=== PATIENT | female | born 1960 | race Caucasian/White ===

== ENCOUNTER 2021-12-09 12:06 | Inpatient (IN) ==
[2021-12-09] MEDS ORDERED: *HR* LORazepam 0.5 MG TABLET PO PRN (16:17)
[2021-12-09] MEDS: Gabapentin 300 MG CAPSULE PO SCH (21:45)
[2021-12-09] MEDS: Simethicone 80 MG TAB.CHEW PO SCH ×2 (21:46)
[2021-12-09] MEDS: traZODone 50 MG TABLET PO SCH (21:46)
[2021-12-09] MEDS: Apixaban 5 MG TABLET PO SCH (21:47)
[2021-12-09] MEDS: *HR* OxyCODONE/APAP 5/325 TABLET PO PRN (21:47)
[2021-12-09] MEDS: carvediloL 6.25 MG TABLET PO SCH (21:49)
[2021-12-10 04:54] LABS: Basophils # 0.1 K/mcL (0.0-0.2); Basophils % 2.2 %; Eosinophils # 0.2 K/mcL (0.0-0.6); Eosinophils % 6.2 %; Hematocrit 30.1 % (35.3-44.9); Hemoglobin 9.3 g/dL (11.5-15.4); Immature Granulocytes % 0.3 % (0-4); Lymphocytes % 26.3 %; Mean Corpuscular HGB Conc 30.9 g/dL (31.6-35.5); Mean Corpuscular Hemoglobin 28.6 pg (28.0-33.3); Mean Corpuscular Volume 92.6 fL (83.0-100.0); Monocytes # 0.6 K/mcL (0.0-1.3); Monocytes % 19.2 %; Neutrophils # 1.5 K/mcL (1.6-8.9); Platelet Count 233 K/mcL (140-400); Red Blood Count 3.25 M/mcL (3.82-4.97); Red Cell Distribution Width 16.5 % (11.5-14.5); Segmented Neutrophils % 45.8 %; White Blood Count 3.2 K/mcL (4.3-11.1)
[2021-12-10 05:01] LABS: Lymphocytes # 0.8 K/mcL (0.6-4.6)
[2021-12-10 05:02] LABS: Platelet Estimate Normal (Normal)
[2021-12-10 05:06] LABS: BUN/Creatinine Ratio 15 (6-26); Blood Urea Nitrogen 10 mg/dL (8-23); Calcium 8.2 mg/dL (8.6-10.3); Carbon Dioxide 25 mEq/L (23-29); Chloride 109 mEq/L (98-107); Glucose 89 mg/dL (70-105); Osmolality,Calculated 285 (280-300); Potassium 4.1 mEq/L (3.5-5.1); Sodium 138 mEq/L (136-145); eGFR For African Americans > 60 (> 60); eGFR For Non-African Americans > 60 (> 60)
[2021-12-10] MEDS: Simethicone 80 MG TAB.CHEW PO SCH ×4 (06:08→21:11)
[2021-12-10] MEDS: carvediloL 6.25 MG TABLET PO SCH ×2 (07:46→16:05)
[2021-12-10] MEDS: DESVENLAFAXINE SUCCINATE PO SCH (07:47)
[2021-12-10] MEDS: Brexpiprazole [Rexulti] 1 MG Tablet PO SCH (07:47)
[2021-12-10] MEDS ORDERED: Fluticasone Propionate Nasal 50 MCG/SPRAY BOTTLE NS PRN (08:00)
[2021-12-10] MEDS: Lactobacillus 1 EACH CAP.SPRINK PO SCH (08:35)
[2021-12-10] MEDS: Aspirin Enteric Coated 81 MG Tablet PO SCH (08:35)
[2021-12-10] MEDS: Multivit/Ca/Min/Fe/FA 1 TAB TABLET PO SCH (08:35)
[2021-12-10] MEDS: *HR* OxyCODONE/APAP 5/325 TABLET PO PRN ×2 (08:35→14:23)
[2021-12-10] MEDS: Cholecalciferol (D-3) 1,000 UNIT (25MCG) TABLET PO SCH (08:35)
[2021-12-10] MEDS: Apixaban 5 MG TABLET PO SCH ×2 (08:35→21:11)
[2021-12-10] MEDS: Gabapentin 300 MG CAPSULE PO SCH ×3 (08:35→21:11)
[2021-12-10] MEDS: Folic Acid 1 MG TABLET PO SCH (08:35)
[2021-12-10] MEDS ORDERED: Hydrocortisone Rectal 2.5% CRM 28 GM TUBE RC PRN (09:00)
[2021-12-10] MEDS: traZODone 50 MG TABLET PO SCH (21:12)
[2021-12-11 04:55] LABS: Hematocrit 28.7 % (35.3-44.9); Mean Corpuscular HGB Conc 31.4 g/dL (31.6-35.5); Mean Corpuscular Hemoglobin 28.1 pg (28.0-33.3); Mean Corpuscular Volume 89.7 fL (83.0-100.0); Platelet Count 209 K/mcL (140-400); Red Cell Distribution Width 16.5 % (11.5-14.5); White Blood Count 2.9 K/mcL (4.3-11.1)
[2021-12-11] MEDS: Simethicone 80 MG TAB.CHEW PO SCH ×4 (05:34→19:51)
[2021-12-11] MEDS: Folic Acid 1 MG TABLET PO SCH (09:54)
[2021-12-11] MEDS: Aspirin Enteric Coated 81 MG Tablet PO SCH (09:54)
[2021-12-11] MEDS: Cholecalciferol (D-3) 1,000 UNIT (25MCG) TABLET PO SCH (09:54)
[2021-12-11] MEDS: Multivit/Ca/Min/Fe/FA 1 TAB TABLET PO SCH (09:54)
[2021-12-11] MEDS: Apixaban 5 MG TABLET PO SCH ×2 (09:54→19:51)
[2021-12-11] MEDS: Gabapentin 300 MG CAPSULE PO SCH ×3 (09:54→19:51)
[2021-12-11] MEDS: Lactobacillus 1 EACH CAP.SPRINK PO SCH (09:54)
[2021-12-11] MEDS: carvediloL 6.25 MG TABLET PO SCH ×3 (09:55→18:16)
[2021-12-11] MEDS: Brexpiprazole [Rexulti] 1 MG Tablet PO SCH (10:00)
[2021-12-11] MEDS: DESVENLAFAXINE SUCCINATE PO SCH (10:00)
[2021-12-11] MEDS: *HR* OxyCODONE/APAP 5/325 TABLET PO PRN (10:05)
[2021-12-11] MEDS: Ondansetron ODT 4 MG TAB.RAPDIS SL PRN (10:55)
[2021-12-11] MEDS: 0.9 % Sodium Chloride 1,000 ML IVC SCH (17:08)
[2021-12-11] MEDS ORDERED: diazePAM 5 MG TABLET PO PRN (18:49)
[2021-12-11] MEDS ORDERED: Acetaminophen 325 MG TABLET PO PRN ×2 (18:51→18:53)
[2021-12-11] MEDS: *HR* Methotrexate 2.5 MG TABLET PO SCH (19:23)
[2021-12-11] MEDS: traZODone 50 MG TABLET PO SCH (19:51)
[2021-12-12] MEDS: 0.9 % Sodium Chloride 1,000 ML IVC SCH (02:06)
[2021-12-12 04:31] LABS: Hemoglobin 8.7 g/dL (11.5-15.4); Mean Corpuscular HGB Conc 31.1 g/dL (31.6-35.5); Mean Corpuscular Hemoglobin 28.2 pg (28.0-33.3); Mean Corpuscular Volume 90.9 fL (83.0-100.0); Mean Platelet Volume 9.4 fL (9.4-12.4); Platelet Count 187 K/mcL (140-400); Red Blood Count 3.08 M/mcL (3.82-4.97); Red Cell Distribution Width 16.4 % (11.5-14.5); White Blood Count 2.4 K/mcL (4.3-11.1)
[2021-12-12 04:47] LABS: Alanine Aminotransferase 6 Units/L (7-52); Alkaline Phosphatase 59 Units/L (34-104); Aspartate Amino Transferase 12 Units/L (13-39); BUN/Creatinine Ratio 16 (6-26); Bilirubin,Total 0.2 mg/dL (0.3-1.0); Blood Urea Nitrogen 9 mg/dL (8-23); Calcium 7.4 mg/dL (8.6-10.3); Carbon Dioxide 25 mEq/L (23-29); Chloride 113 mEq/L (98-107); Glucose 89 mg/dL (70-105); Magnesium 1.5 mg/dL (1.6-2.6); Osmolality,Calculated 288 (280-300); Sodium 140 mEq/L (136-145); eGFR For African Americans > 60 (> 60); eGFR For Non-African Americans > 60 (> 60)
[2021-12-12] MEDS: Simethicone 80 MG TAB.CHEW PO SCH ×4 (05:46→20:31)
[2021-12-12] MEDS ORDERED: 0.9 % Sodium Chloride 500 ML IVC ONE (07:50)
[2021-12-12] MEDS: Aspirin Enteric Coated 81 MG Tablet PO SCH (08:14)
[2021-12-12] MEDS: Folic Acid 1 MG TABLET PO SCH (08:14)
[2021-12-12] MEDS: Cholecalciferol (D-3) 1,000 UNIT (25MCG) TABLET PO SCH (08:14)
[2021-12-12] MEDS: Multivit/Ca/Min/Fe/FA 1 TAB TABLET PO SCH (08:14)
[2021-12-12] MEDS: Lactobacillus 1 EACH CAP.SPRINK PO SCH (08:14)
[2021-12-12] MEDS: Apixaban 5 MG TABLET PO SCH ×2 (08:14→20:30)
[2021-12-12] MEDS: Brexpiprazole [Rexulti] 1 MG Tablet PO SCH (08:15)
[2021-12-12] MEDS: DESVENLAFAXINE SUCCINATE PO SCH (08:15)
[2021-12-12] MEDS ORDERED: diazePAM 5 MG TABLET PO SCH (09:00)
[2021-12-12] MEDS: *HR* OxyCODONE/APAP 5/325 TABLET PO PRN ×2 (10:36→17:31)
[2021-12-12] MEDS ORDERED: *HR* FentaNYL PATCH 12 MCG PATCH TD SCH (14:30)
[2021-12-12] MEDS ORDERED: diazePAM 5 MG TABLET PO PRN (14:30)
[2021-12-12] MEDS: Fluconazole 100 MG TABLET PO SCH (14:58)
[2021-12-12] MEDS: traZODone 50 MG TABLET PO SCH (20:30)
[2021-12-13] MEDS: Simethicone 80 MG TAB.CHEW PO SCH ×4 (05:56→20:38)
[2021-12-13] MEDS: DESVENLAFAXINE SUCCINATE PO SCH (09:16)
[2021-12-13] MEDS: Brexpiprazole [Rexulti] 1 MG Tablet PO SCH (09:16)
[2021-12-13] MEDS: Cholecalciferol (D-3) 1,000 UNIT (25MCG) TABLET PO SCH (09:18)
[2021-12-13] MEDS: Apixaban 5 MG TABLET PO SCH ×2 (09:19→20:38)
[2021-12-13] MEDS: Gabapentin 300 MG CAPSULE PO SCH ×3 (09:20→20:38)
[2021-12-13] MEDS: Folic Acid 1 MG TABLET PO SCH (09:20)
[2021-12-13] MEDS: Metoprolol XL (24 HR) Succ 25 MG TAB.ER.24H PO SCH (09:20)
[2021-12-13] MEDS: Multivit/Ca/Min/Fe/FA 1 TAB TABLET PO SCH (09:21)
[2021-12-13] MEDS: Lactobacillus 1 EACH CAP.SPRINK PO SCH (09:21)
[2021-12-13] MEDS: Fluconazole 100 MG TABLET PO SCH (09:21)
[2021-12-13] MEDS: Aspirin Enteric Coated 81 MG Tablet PO SCH (09:21)
[2021-12-13] MEDS: Ondansetron ODT 4 MG TAB.RAPDIS SL PRN (09:26)
[2021-12-13 12:02] LABS: Basophils # 0.1 K/mcL (0.0-0.2); Basophils % 1.2 %; Eosinophils # 0.1 K/mcL (0.0-0.6); Eosinophils % 3.3 %; Hematocrit 32.4 % (35.3-44.9); Immature Granulocytes % 0.2 % (0-4); Lymphocytes # 0.5 K/mcL (0.6-4.6); Lymphocytes % 10.8 %; Mean Corpuscular HGB Conc 30.9 g/dL (31.6-35.5); Mean Corpuscular Hemoglobin 28.3 pg (28.0-33.3); Mean Corpuscular Volume 91.8 fL (83.0-100.0); Mean Platelet Volume 9.2 fL (9.4-12.4); Monocytes # 0.4 K/mcL (0.0-1.3); Monocytes % 8.6 %; Neutrophils # 3.2 K/mcL (1.6-8.9); Platelet Count 249 K/mcL (140-400); Red Blood Count 3.53 M/mcL (3.82-4.97); Segmented Neutrophils % 75.9 %; White Blood Count 4.2 K/mcL (4.3-11.1)
[2021-12-13 12:12] LABS: BUN/Creatinine Ratio 10 (6-26); Blood Urea Nitrogen 6 mg/dL (8-23); Calcium 8.3 mg/dL (8.6-10.3); Carbon Dioxide 26 mEq/L (23-29); Chloride 108 mEq/L (98-107); Glucose 94 mg/dL (70-105); Osmolality,Calculated 283 (280-300); Potassium 4.6 mEq/L (3.5-5.1); Sodium 138 mEq/L (136-145); eGFR For African Americans > 60 (> 60); eGFR For Non-African Americans > 60 (> 60)
[2021-12-13] MEDS: *HR* HYDROcodone/Acet 5/325 mg TABLET PO PRN (16:58)
[2021-12-13] MEDS: traZODone 50 MG TABLET PO SCH (20:37)
[2021-12-13] MEDS ORDERED: [UNRECOGNIZED DRUG - OTHER] PO SCH (22:45)
[2021-12-13] MEDS: [UNRECOGNIZED DRUG - OTHER] PO SCH (23:45)
[2021-12-14] MEDS: Simethicone 80 MG TAB.CHEW PO SCH ×4 (05:45→20:20)
[2021-12-14] MEDS: Ondansetron ODT 4 MG TAB.RAPDIS SL PRN (05:46)
[2021-12-14] MEDS ORDERED: 0.9 % Sodium Chloride 500 ML IVC ONE ×2 (08:08→11:19)
[2021-12-14] MEDS ORDERED: 0.9 % Sodium Chloride 1,000 ML IVC SCH (08:15)
[2021-12-14] MEDS: Cholecalciferol (D-3) 1,000 UNIT (25MCG) TABLET PO SCH (08:38)
[2021-12-14] MEDS: Apixaban 5 MG TABLET PO SCH ×2 (08:38→20:20)
[2021-12-14] MEDS: Fluconazole 100 MG TABLET PO SCH (08:38)
[2021-12-14] MEDS: Aspirin Enteric Coated 81 MG Tablet PO SCH (08:38)
[2021-12-14] MEDS: Lactobacillus 1 EACH CAP.SPRINK PO SCH (08:38)
[2021-12-14] MEDS: Folic Acid 1 MG TABLET PO SCH (08:38)
[2021-12-14] MEDS: Multivit/Ca/Min/Fe/FA 1 TAB TABLET PO SCH (08:38)
[2021-12-14] MEDS: Brexpiprazole [Rexulti] 1 MG Tablet PO SCH (08:39)
[2021-12-14] MEDS: DESVENLAFAXINE SUCCINATE PO SCH (08:39)
[2021-12-14] MEDS: Metoprolol XL (24 HR) Succ 25 MG TAB.ER.24H PO SCH (08:42)
[2021-12-14] MEDS: Gabapentin 300 MG CAPSULE PO SCH ×4 (08:42→20:21)
[2021-12-14] MEDS: *HR* HYDROcodone/Acet 5/325 mg TABLET PO PRN ×2 (11:09→17:20)
[2021-12-14] MEDS: [UNRECOGNIZED DRUG - OTHER] PO SCH ×2 (11:11→20:21)
[2021-12-14] MEDS ORDERED: 0.9 % Sodium Chloride 500 ML ONE (11:26)
[2021-12-14 11:43] LABS: Bilirubin,Urine Negative (Negative); Blood,Urine Negative (Negative); Clarity,Urine Clear (Clear); Color,Urine Yellow (Yellow); Glucose,Urine (UA) Normal (Normal); Ketones,Urine Negative (Negative); Leukocyte Esterase,Urine Trace (Negative); Nitrite,Urine Negative (Negative); Protein,Urine Negative (Neg-Trace); Specific Gravity,Urine >= 1.030 (1.010-1.025); Urobilinogen,Urine Normal (Normal)
[2021-12-14] MEDS ORDERED: diazePAM 2 MG TABLET PO PRN (11:52)
[2021-12-14 12:07] LABS: Bacteria,Urine Few per hpf (None-Few); WBC,Urine 0-3 per hpf (0-3)
[2021-12-14 12:08] LABS: Budding Yeast,Urine Moderate per hpf (None Seen); Calcium Oxalate Crystals,Urine Present per hpf; Mucus,Urine Moderate per lpf (None-Few)
[2021-12-14] MEDS: traZODone 50 MG TABLET PO SCH (20:21)
[2021-12-15] MEDS: Simethicone 80 MG TAB.CHEW PO SCH ×4 (05:05→19:45)
[2021-12-15 05:42] LABS: Hematocrit 28.3 % (35.3-44.9); Hemoglobin 8.9 g/dL (11.5-15.4); Mean Corpuscular HGB Conc 31.4 g/dL (31.6-35.5); Mean Corpuscular Hemoglobin 28.5 pg (28.0-33.3); Mean Corpuscular Volume 90.7 fL (83.0-100.0); Mean Platelet Volume 9.4 fL (9.4-12.4); Platelet Count 233 K/mcL (140-400); Red Blood Count 3.12 M/mcL (3.82-4.97); Red Cell Distribution Width 16.1 % (11.5-14.5); White Blood Count 2.3 K/mcL (4.3-11.1)
[2021-12-15 05:59] LABS: Alanine Aminotransferase 9 Units/L (7-52); Alkaline Phosphatase 60 Units/L (34-104); Aspartate Amino Transferase 18 Units/L (13-39); BUN/Creatinine Ratio 8 (6-26); Bilirubin,Total 0.2 mg/dL (0.3-1.0); Blood Urea Nitrogen 5 mg/dL (8-23); Carbon Dioxide 27 mEq/L (23-29); Chloride 108 mEq/L (98-107); Globulin 2.1 g/dL (2.4-3.5); Glucose 85 mg/dL (70-105); Magnesium 1.4 mg/dL (1.6-2.6); Osmolality,Calculated 281 (280-300); Potassium 3.9 mEq/L (3.5-5.1); Sodium 137 mEq/L (136-145); Total Protein 4.1 g/dL (6.4-8.9); eGFR For African Americans > 60 (> 60); eGFR For Non-African Americans > 60 (> 60)
[2021-12-15] MEDS: Folic Acid 1 MG TABLET PO SCH (10:01)
[2021-12-15] MEDS: Fluconazole 100 MG TABLET PO SCH (10:01)
[2021-12-15] MEDS: Lactobacillus 1 EACH CAP.SPRINK PO SCH (10:01)
[2021-12-15] MEDS: Cholecalciferol (D-3) 1,000 UNIT (25MCG) TABLET PO SCH (10:01)
[2021-12-15] MEDS: Aspirin Enteric Coated 81 MG Tablet PO SCH (10:01)
[2021-12-15] MEDS: Apixaban 5 MG TABLET PO SCH ×2 (10:02→19:45)
[2021-12-15] MEDS: Gabapentin 300 MG CAPSULE PO SCH ×3 (10:02→19:45)
[2021-12-15] MEDS: Multivit/Ca/Min/Fe/FA 1 TAB TABLET PO SCH (10:02)
[2021-12-15] MEDS: [UNRECOGNIZED DRUG - OTHER] PO SCH ×2 (10:04→19:46)
[2021-12-15] MEDS: Brexpiprazole [Rexulti] 1 MG Tablet PO SCH (10:07)
[2021-12-15] MEDS: Metoprolol XL (24 HR) Succ 25 MG TAB.ER.24H PO SCH (10:07)
[2021-12-15] MEDS: DESVENLAFAXINE SUCCINATE PO SCH (10:07)
[2021-12-15] MEDS: *HR* HYDROcodone/Acet 5/325 mg TABLET PO PRN (11:07)
[2021-12-15] MEDS: *HR* OxyCODONE/APAP 5/325 TABLET PO PRN (16:54)
[2021-12-15] MEDS: traZODone 50 MG TABLET PO SCH (19:45)
[2021-12-16] MEDS: Metoprolol XL (24 HR) Succ 25 MG TAB.ER.24H PO SCH (08:42)
[2021-12-16] MEDS: Aspirin Enteric Coated 81 MG Tablet PO SCH (08:47)
[2021-12-16] MEDS: Fluconazole 100 MG TABLET PO SCH (08:47)
[2021-12-16] MEDS: Apixaban 5 MG TABLET PO SCH ×2 (08:48→20:42)
[2021-12-16] MEDS: Gabapentin 300 MG CAPSULE PO SCH ×3 (08:48→20:42)
[2021-12-16] MEDS: Simethicone 80 MG TAB.CHEW PO SCH ×4 (08:48→20:42)
[2021-12-16] MEDS: Multivit/Ca/Min/Fe/FA 1 TAB TABLET PO SCH (08:48)
[2021-12-16] MEDS: Cholecalciferol (D-3) 1,000 UNIT (25MCG) TABLET PO SCH (08:48)
[2021-12-16] MEDS: Brexpiprazole [Rexulti] 1 MG Tablet PO SCH (08:49)
[2021-12-16] MEDS: Lactobacillus 1 EACH CAP.SPRINK PO SCH (08:49)
[2021-12-16] MEDS: DESVENLAFAXINE SUCCINATE PO SCH (08:49)
[2021-12-16] MEDS: Folic Acid 1 MG TABLET PO SCH (08:49)
[2021-12-16] MEDS: [UNRECOGNIZED DRUG - OTHER] PO SCH ×2 (08:55→20:43)
[2021-12-16] MEDS: Ondansetron ODT 4 MG TAB.RAPDIS SL PRN (09:23)
[2021-12-16] MEDS: *HR* OxyCODONE/APAP 5/325 TABLET PO PRN (10:42)
[2021-12-16] MEDS: traZODone 50 MG TABLET PO SCH (20:42)
[2021-12-16] MEDS: Silver Sulfadiazine 50 GM TUBE TP SCH (20:44)
[2021-12-17] MEDS: Cholecalciferol (D-3) 1,000 UNIT (25MCG) TABLET PO SCH (07:41)
[2021-12-17] MEDS: Simethicone 80 MG TAB.CHEW PO SCH ×4 (07:41→19:46)
[2021-12-17] MEDS: Aspirin Enteric Coated 81 MG Tablet PO SCH (07:41)
[2021-12-17] MEDS: *HR* HYDROcodone/Acet 5/325 mg TABLET PO PRN (07:41)
[2021-12-17] MEDS: Lactobacillus 1 EACH CAP.SPRINK PO SCH (07:41)
[2021-12-17] MEDS: Multivit/Ca/Min/Fe/FA 1 TAB TABLET PO SCH (07:41)
[2021-12-17] MEDS: Metoprolol XL (24 HR) Succ 25 MG TAB.ER.24H PO SCH (07:41)
[2021-12-17] MEDS: Fluconazole 100 MG TABLET PO SCH (07:42)
[2021-12-17] MEDS: Gabapentin 300 MG CAPSULE PO SCH ×3 (07:42→19:46)
[2021-12-17] MEDS: Apixaban 5 MG TABLET PO SCH ×2 (07:43→19:46)
[2021-12-17] MEDS: Brexpiprazole [Rexulti] 1 MG Tablet PO SCH (07:43)
[2021-12-17] MEDS: Psyllium 1 PACKET POWD.PACK PO SCH ×2 (07:44→19:46)
[2021-12-17] MEDS: DESVENLAFAXINE SUCCINATE PO SCH (07:44)
[2021-12-17] MEDS: [UNRECOGNIZED DRUG - OTHER] PO SCH ×2 (07:49→19:48)
[2021-12-17] MEDS: *HR* OxyCODONE/APAP 5/325 TABLET PO PRN ×2 (14:06→23:53)
[2021-12-17] MEDS: Folic Acid 1 MG TABLET PO SCH (14:08)
[2021-12-17] MEDS: Silver Sulfadiazine 50 GM TUBE TP SCH ×2 (15:16→19:49)
[2021-12-17] MEDS: traZODone 50 MG TABLET PO SCH (19:46)
[2021-12-18] MEDS: Metoprolol XL (24 HR) Succ 25 MG TAB.ER.24H PO SCH (10:15)
[2021-12-18] MEDS: Cholecalciferol (D-3) 1,000 UNIT (25MCG) TABLET PO SCH (10:15)
[2021-12-18] MEDS: Aspirin Enteric Coated 81 MG Tablet PO SCH (10:15)
[2021-12-18] MEDS: Apixaban 5 MG TABLET PO SCH ×2 (10:15→21:42)
[2021-12-18] MEDS: Lactobacillus 1 EACH CAP.SPRINK PO SCH (10:15)
[2021-12-18] MEDS: Gabapentin 300 MG CAPSULE PO SCH ×3 (10:15→21:42)
[2021-12-18] MEDS: Folic Acid 1 MG TABLET PO SCH (10:15)
[2021-12-18] MEDS: DESVENLAFAXINE SUCCINATE PO SCH (10:16)
[2021-12-18] MEDS: Fluconazole 100 MG TABLET PO SCH (10:16)
[2021-12-18] MEDS: Multivit/Ca/Min/Fe/FA 1 TAB TABLET PO SCH (10:16)
[2021-12-18] MEDS: Brexpiprazole [Rexulti] 1 MG Tablet PO SCH (10:16)
[2021-12-18] MEDS: Psyllium 1 PACKET POWD.PACK PO SCH ×3 (10:17→21:51)
[2021-12-18] MEDS: Simethicone 80 MG TAB.CHEW PO SCH ×4 (10:25→21:42)
[2021-12-18] MEDS: Silver Sulfadiazine 50 GM TUBE TP SCH ×2 (10:26→21:47)
[2021-12-18] MEDS: *HR* OxyCODONE/APAP 5/325 TABLET PO PRN (14:51)
[2021-12-18] MEDS: *HR* Methotrexate 2.5 MG TABLET PO SCH (18:08)
[2021-12-18] MEDS ORDERED: 0.9 % Sodium Chloride 1,000 ML IV ONE (18:50)
[2021-12-18] MEDS: traZODone 50 MG TABLET PO SCH (21:42)
[2021-12-18] MEDS: Ondansetron ODT 4 MG TAB.RAPDIS SL PRN (21:46)
[2021-12-18] MEDS ORDERED: 0.9 % Sodium Chloride 1,000 ML IVC SCH (23:00)
[2021-12-19 04:41] LABS: Hematocrit 28.5 % (35.3-44.9); Hemoglobin 8.9 g/dL (11.5-15.4); Mean Corpuscular HGB Conc 31.2 g/dL (31.6-35.5); Mean Corpuscular Hemoglobin 28.2 pg (28.0-33.3); Mean Corpuscular Volume 90.2 fL (83.0-100.0); Mean Platelet Volume 9.4 fL (9.4-12.4); Platelet Count 222 K/mcL (140-400); Red Blood Count 3.16 M/mcL (3.82-4.97); Red Cell Distribution Width 15.5 % (11.5-14.5)
[2021-12-19 04:56] LABS: Alanine Aminotransferase 10 Units/L (7-52); Alkaline Phosphatase 79 Units/L (34-104); Aspartate Amino Transferase 15 Units/L (13-39); BUN/Creatinine Ratio 11 (6-26); Bilirubin,Total 0.2 mg/dL (0.3-1.0); Blood Urea Nitrogen 9 mg/dL (8-23); Calcium 7.5 mg/dL (8.6-10.3); Carbon Dioxide 29 mEq/L (23-29); Chloride 109 mEq/L (98-107); Glucose 92 mg/dL (70-105); Magnesium 1.9 mg/dL (1.6-2.6); Osmolality,Calculated 288 (280-300); Potassium 4.6 mEq/L (3.5-5.1); Sodium 140 mEq/L (136-145); eGFR For African Americans > 60 (> 60); eGFR For Non-African Americans > 60 (> 60)
[2021-12-19] MEDS: Simethicone 80 MG TAB.CHEW PO SCH ×4 (05:00→20:36)
[2021-12-19] MEDS: Lactobacillus 1 EACH CAP.SPRINK PO SCH (09:30)
[2021-12-19] MEDS: Aspirin Enteric Coated 81 MG Tablet PO SCH (09:30)
[2021-12-19] MEDS: Cholecalciferol (D-3) 1,000 UNIT (25MCG) TABLET PO SCH (09:30)
[2021-12-19] MEDS: Multivit/Ca/Min/Fe/FA 1 TAB TABLET PO SCH (09:30)
[2021-12-19] MEDS: Fluconazole 100 MG TABLET PO SCH (09:30)
[2021-12-19] MEDS: Gabapentin 300 MG CAPSULE PO SCH ×3 (09:31→20:37)
[2021-12-19] MEDS: Folic Acid 1 MG TABLET PO SCH (09:31)
[2021-12-19] MEDS: Apixaban 5 MG TABLET PO SCH ×2 (09:31→20:37)
[2021-12-19] MEDS: Metoprolol XL (24 HR) Succ 25 MG TAB.ER.24H PO SCH (09:31)
[2021-12-19] MEDS: Psyllium 1 PACKET POWD.PACK PO SCH ×2 (09:34→20:38)
[2021-12-19] MEDS: *HR* OxyCODONE/APAP 5/325 TABLET PO PRN (09:45)
[2021-12-19] MEDS: *HR* Methotrexate 2.5 MG TABLET PO SCH ×2 (09:46→11:58)
[2021-12-19] MEDS: Silver Sulfadiazine 50 GM TUBE TP SCH ×2 (09:46→21:27)
[2021-12-19] MEDS: Brexpiprazole [Rexulti] 1 MG Tablet PO SCH (09:46)
[2021-12-19] MEDS: DESVENLAFAXINE SUCCINATE PO SCH (09:46)
[2021-12-19] MEDS: Ondansetron ODT 4 MG TAB.RAPDIS SL PRN (17:32)
[2021-12-19] MEDS: traZODone 50 MG TABLET PO SCH (20:37)
[2021-12-20] MEDS: Simethicone 80 MG TAB.CHEW PO SCH ×4 (06:02→21:55)
[2021-12-20] MEDS: [UNRECOGNIZED DRUG - OTHER] PO SCH ×2 (07:50→21:56)
[2021-12-20] MEDS: Metoprolol XL (24 HR) Succ 25 MG TAB.ER.24H PO SCH (07:52)
[2021-12-20] MEDS: Cholecalciferol (D-3) 1,000 UNIT (25MCG) TABLET PO SCH (07:52)
[2021-12-20] MEDS: Gabapentin 300 MG CAPSULE PO SCH ×3 (07:52→21:56)
[2021-12-20] MEDS: Folic Acid 1 MG TABLET PO SCH (07:52)
[2021-12-20] MEDS: Aspirin Enteric Coated 81 MG Tablet PO SCH (07:52)
[2021-12-20] MEDS: Apixaban 5 MG TABLET PO SCH ×2 (07:52→21:55)
[2021-12-20] MEDS: Multivit/Ca/Min/Fe/FA 1 TAB TABLET PO SCH (07:52)
[2021-12-20] MEDS: Brexpiprazole [Rexulti] 1 MG Tablet PO SCH (07:57)
[2021-12-20] MEDS: Psyllium 1 PACKET POWD.PACK PO SCH ×2 (07:58→21:56)
[2021-12-20] MEDS: Lactobacillus 1 EACH CAP.SPRINK PO SCH ×2 (07:58→10:41)
[2021-12-20] MEDS: *HR* OxyCODONE/APAP 5/325 TABLET PO PRN (10:41)
[2021-12-20] MEDS: DESVENLAFAXINE SUCCINATE PO SCH (11:36)
[2021-12-20] MEDS: Silver Sulfadiazine 50 GM TUBE TP SCH (13:50)
[2021-12-20] MEDS: *HR* HYDROcodone/Acet 5/325 mg TABLET PO PRN (15:14)
[2021-12-20] MEDS: traZODone 50 MG TABLET PO SCH (21:55)
[2021-12-21] MEDS: Silver Sulfadiazine 50 GM TUBE TP SCH ×2 (02:50→15:46)
[2021-12-21] MEDS: Simethicone 80 MG TAB.CHEW PO SCH ×3 (05:51→15:42)
[2021-12-21 06:57] VITALS: BP 94/61; PULSE 75; RESP 17; TEMP 97.6; O2SAT 96
[2021-12-21] MEDS: Lactobacillus 1 EACH CAP.SPRINK PO SCH (08:42)
[2021-12-21] MEDS: Cholecalciferol (D-3) 1,000 UNIT (25MCG) TABLET PO SCH (08:42)
[2021-12-21] MEDS: Aspirin Enteric Coated 81 MG Tablet PO SCH (08:42)
[2021-12-21] MEDS: Gabapentin 300 MG CAPSULE PO SCH ×2 (08:42→15:42)
[2021-12-21] MEDS: Folic Acid 1 MG TABLET PO SCH (08:43)
[2021-12-21] MEDS: Metoprolol XL (24 HR) Succ 25 MG TAB.ER.24H PO SCH (08:43)
[2021-12-21] MEDS: Multivit/Ca/Min/Fe/FA 1 TAB TABLET PO SCH (08:43)
[2021-12-21] MEDS: Apixaban 5 MG TABLET PO SCH (08:43)
[2021-12-21] MEDS: Psyllium 1 PACKET POWD.PACK PO SCH (08:45)
[2021-12-21] MEDS: [UNRECOGNIZED DRUG - OTHER] PO SCH (08:47)
[2021-12-21] MEDS: Ondansetron ODT 4 MG TAB.RAPDIS SL PRN (10:46)
[2021-12-21] MEDS: *HR* OxyCODONE/APAP 5/325 TABLET PO PRN (11:17)
== END 2021-12-21 17:00 | disposition short-term general hospital (02) | DRG 393 ==
LOC: INPGRE 19:15
PROVIDERS: ADMIT Family Medicine; ATTEND Family Medicine

== ENCOUNTER 2021-12-23 21:58 | Inpatient (IN) ==
[2021-12-24] MEDS ORDERED: Fluticasone Propionate Nasal 50 MCG/SPRAY BOTTLE NS PRN (14:29)
[2021-12-24] MEDS ORDERED: Hydrocortisone Rectal 2.5% CRM 28 GM TUBE RC PRN (14:29)
[2021-12-24] MEDS ORDERED: *HR* LORazepam 0.5 MG TABLET PO PRN (14:29)
[2021-12-24] MEDS: Simethicone 80 MG TAB.CHEW PO SCH ×2 (15:36→20:10)
[2021-12-24] MEDS: Gabapentin 300 MG CAPSULE PO SCH ×2 (15:36→20:09)
[2021-12-24] MEDS: *HR* OxyCODONE/APAP 5/325 TABLET PO PRN ×2 (15:36→21:46)
[2021-12-24] MEDS: Apixaban 5 MG TABLET PO SCH (20:09)
[2021-12-24] MEDS: traZODone 50 MG TABLET PO SCH (20:09)
[2021-12-24] MEDS: carvediloL 6.25 MG TABLET PO SCH (20:11)
[2021-12-24] MEDS: Capecitabine [Xeloda] 500 MG Tablet PO SCH (20:19)
[2021-12-24 23:53] LABS: Bilirubin,Urine Negative (Negative); Blood,Urine Moderate (Negative); Clarity,Urine Clear (Clear); Color,Urine Yellow (Yellow); Glucose,Urine (UA) Normal (Normal); Ketones,Urine Negative (Negative); Leukocyte Esterase,Urine Negative (Negative); Nitrite,Urine Negative (Negative); PH,Urine 5.5 pH Units (5.0-8.0); Protein,Urine Negative (Neg-Trace); Specific Gravity,Urine >= 1.030 (1.010-1.025); Urobilinogen,Urine Normal (Normal)
[2021-12-24 23:59] LABS: Bacteria,Urine Few per hpf (None-Few); Hyaline Casts,Urine Moderate per lpf (None Seen); Squamous Epithelial Cell,Urine Few per hpf (None-Few)
[2021-12-25] MEDS ORDERED: Ringers Solution, Lactated 500 ML IVC ONE (00:45)
[2021-12-25] MEDS: Simethicone 80 MG TAB.CHEW PO SCH ×4 (06:50→19:54)
[2021-12-25 08:28] LABS: Eosinophils # 0.2 K/mcL (0.0-0.6); Eosinophils % 5.1 %; Hematocrit 32.9 % (35.3-44.9); Hemoglobin 10.3 g/dL (11.5-15.4); Immature Granulocytes % 0.3 % (0-4); Lymphocytes # 0.3 K/mcL (0.6-4.6); Lymphocytes % 10.8 %; Mean Corpuscular HGB Conc 31.3 g/dL (31.6-35.5); Mean Corpuscular Hemoglobin 28.6 pg (28.0-33.3); Mean Corpuscular Volume 91.4 fL (83.0-100.0); Mean Platelet Volume 8.5 fL (9.4-12.4); Monocytes # 0.3 K/mcL (0.0-1.3); Monocytes % 9.2 %; Neutrophils # 2.2 K/mcL (1.6-8.9); Platelet Count 241 K/mcL (140-400); Red Cell Distribution Width 15.2 % (11.5-14.5); Segmented Neutrophils % 73.6 %
[2021-12-25] MEDS: carvediloL 6.25 MG TABLET PO SCH ×2 (08:34→19:54)
[2021-12-25] MEDS: Apixaban 5 MG TABLET PO SCH ×2 (08:34→19:55)
[2021-12-25] MEDS: Gabapentin 300 MG CAPSULE PO SCH ×3 (08:34→19:53)
[2021-12-25] MEDS: DESVENLAFAXINE SUCCINATE PO SCH (08:36)
[2021-12-25] MEDS: Brexpiprazole [Rexulti] 1 MG Tablet PO SCH (08:36)
[2021-12-25] MEDS: Folic Acid 1 MG TABLET PO SCH (08:43)
[2021-12-25] MEDS: Lactobacillus 1 EACH CAP.SPRINK PO SCH (08:43)
[2021-12-25] MEDS: Aspirin Enteric Coated 81 MG Tablet PO SCH (08:43)
[2021-12-25] MEDS: Cholecalciferol (D-3) 1,000 UNIT (25MCG) TABLET PO SCH (08:43)
[2021-12-25] MEDS: Multivit/Ca/Min/Fe/FA 1 TAB TABLET PO SCH (08:44)
[2021-12-25] MEDS: Ondansetron ODT 4 MG TAB.RAPDIS SL PRN ×2 (09:07→18:13)
[2021-12-25 09:14] LABS: BUN/Creatinine Ratio 7 (6-26); Blood Urea Nitrogen 5 mg/dL (8-23); Calcium 8.3 mg/dL (8.6-10.3); Carbon Dioxide 28 mEq/L (23-29); Chloride 109 mEq/L (98-107); Glucose 85 mg/dL (70-105); Osmolality,Calculated 289 (280-300); Potassium 3.8 mEq/L (3.5-5.1); Sodium 141 mEq/L (136-145); eGFR For African Americans > 60 (> 60); eGFR For Non-African Americans > 60 (> 60)
[2021-12-25] MEDS: *HR* OxyCODONE/APAP 5/325 TABLET PO PRN ×2 (10:05→16:31)
[2021-12-25] MEDS: *HR* Methotrexate 2.5 MG TABLET PO SCH (17:45)
[2021-12-25] MEDS: traZODone 50 MG TABLET PO SCH (19:54)
[2021-12-26] MEDS: Cholecalciferol (D-3) 1,000 UNIT (25MCG) TABLET PO SCH (08:48)
[2021-12-26] MEDS: carvediloL 6.25 MG TABLET PO SCH ×2 (08:48→20:42)
[2021-12-26] MEDS: Multivit/Ca/Min/Fe/FA 1 TAB TABLET PO SCH (08:48)
[2021-12-26] MEDS: Aspirin Enteric Coated 81 MG Tablet PO SCH (08:49)
[2021-12-26] MEDS: Gabapentin 300 MG CAPSULE PO SCH ×3 (08:49→20:42)
[2021-12-26] MEDS: Simethicone 80 MG TAB.CHEW PO SCH ×4 (08:49→20:44)
[2021-12-26] MEDS: Lactobacillus 1 EACH CAP.SPRINK PO SCH (08:49)
[2021-12-26] MEDS: Apixaban 5 MG TABLET PO SCH ×2 (08:49→20:42)
[2021-12-26] MEDS: Folic Acid 1 MG TABLET PO SCH (08:49)
[2021-12-26] MEDS: Brexpiprazole [Rexulti] 1 MG Tablet PO SCH (08:54)
[2021-12-26] MEDS: DESVENLAFAXINE SUCCINATE PO SCH (08:54)
[2021-12-26] MEDS ORDERED: Metoclopramide 10 MG/2 ML VIAL IVP PRN (10:06)
[2021-12-26] MEDS: Ondansetron ODT 4 MG TAB.RAPDIS SL PRN (10:34)
[2021-12-26] MEDS: *HR* OxyCODONE/APAP 5/325 TABLET PO PRN (11:51)
[2021-12-26] MEDS: *HR* Methotrexate 2.5 MG TABLET PO SCH (16:29)
[2021-12-26] MEDS: traZODone 50 MG TABLET PO SCH (20:42)
[2021-12-27] MEDS: *HR* OxyCODONE/APAP 5/325 TABLET PO PRN ×4 (03:52→23:23)
[2021-12-27 05:01] LABS: Hemoglobin 10.2 g/dL (11.5-15.4); Mean Corpuscular HGB Conc 31.9 g/dL (31.6-35.5); Mean Corpuscular Hemoglobin 28.9 pg (28.0-33.3); Mean Corpuscular Volume 90.7 fL (83.0-100.0); Mean Platelet Volume 9.5 fL (9.4-12.4); Platelet Count 274 K/mcL (140-400); Red Blood Count 3.53 M/mcL (3.82-4.97); Red Cell Distribution Width 15.7 % (11.5-14.5); White Blood Count 3.7 K/mcL (4.3-11.1)
[2021-12-27 05:19] LABS: Alanine Aminotransferase 18 Units/L (7-52); Albumin 2.2 g/dL (3.5-5.7); Alkaline Phosphatase 81 Units/L (34-104); Aspartate Amino Transferase 30 Units/L (13-39); BUN/Creatinine Ratio 10 (6-26); Bilirubin,Total 0.2 mg/dL (0.3-1.0); Blood Urea Nitrogen 8 mg/dL (8-23); Calcium 8.3 mg/dL (8.6-10.3); Carbon Dioxide 28 mEq/L (23-29); Chloride 109 mEq/L (98-107); Globulin 2.3 g/dL (2.4-3.5); Glucose 83 mg/dL (70-105); Magnesium 1.6 mg/dL (1.6-2.6); Osmolality,Calculated 291 (280-300); Potassium 4.2 mEq/L (3.5-5.1); Sodium 142 mEq/L (136-145); Total Protein 4.5 g/dL (6.4-8.9); eGFR For African Americans > 60 (> 60); eGFR For Non-African Americans > 60 (> 60)
[2021-12-27] MEDS: Simethicone 80 MG TAB.CHEW PO SCH ×4 (05:57→20:56)
[2021-12-27] MEDS: Aspirin Enteric Coated 81 MG Tablet PO SCH (09:06)
[2021-12-27] MEDS: Multivit/Ca/Min/Fe/FA 1 TAB TABLET PO SCH (09:06)
[2021-12-27] MEDS: Gabapentin 300 MG CAPSULE PO SCH ×3 (09:06→20:56)
[2021-12-27] MEDS: Cholecalciferol (D-3) 1,000 UNIT (25MCG) TABLET PO SCH (09:06)
[2021-12-27] MEDS: Lactobacillus 1 EACH CAP.SPRINK PO SCH (09:06)
[2021-12-27] MEDS: Folic Acid 1 MG TABLET PO SCH (09:06)
[2021-12-27] MEDS: DESVENLAFAXINE SUCCINATE PO SCH (09:07)
[2021-12-27] MEDS: Brexpiprazole [Rexulti] 1 MG Tablet PO SCH (09:07)
[2021-12-27] MEDS: Apixaban 5 MG TABLET PO SCH ×2 (09:07→20:57)
[2021-12-27] MEDS: Capecitabine [Xeloda] 500 MG Tablet PO SCH ×3 (09:07→20:59)
[2021-12-27] MEDS: carvediloL 6.25 MG TABLET PO SCH ×2 (09:07→20:57)
[2021-12-27] MEDS: traZODone 50 MG TABLET PO SCH (20:57)
[2021-12-28 04:44] LABS: Basophils % 0.7 %; Eosinophils # 0.2 K/mcL (0.0-0.6); Eosinophils % 4.7 %; Hematocrit 30.6 % (35.3-44.9); Hemoglobin 9.8 g/dL (11.5-15.4); Immature Granulocytes % 0.2 % (0-4); Lymphocytes # 0.4 K/mcL (0.6-4.6); Lymphocytes % 8.9 %; Mean Corpuscular Hemoglobin 28.7 pg (28.0-33.3); Mean Corpuscular Volume 89.5 fL (83.0-100.0); Monocytes # 0.5 K/mcL (0.0-1.3); Monocytes % 10.7 %; Neutrophils # 3.2 K/mcL (1.6-8.9); Platelet Count 276 K/mcL (140-400); Red Blood Count 3.42 M/mcL (3.82-4.97); Red Cell Distribution Width 15.5 % (11.5-14.5); Segmented Neutrophils % 74.8 %; White Blood Count 4.3 K/mcL (4.3-11.1)
[2021-12-28 04:59] LABS: BUN/Creatinine Ratio 11 (6-26); Blood Urea Nitrogen 9 mg/dL (8-23); Carbon Dioxide 29 mEq/L (23-29); Chloride 108 mEq/L (98-107); Glucose 98 mg/dL (70-105); Osmolality,Calculated 289 (280-300); Potassium 4.2 mEq/L (3.5-5.1); Sodium 140 mEq/L (136-145); eGFR For African Americans > 60 (> 60); eGFR For Non-African Americans > 60 (> 60)
[2021-12-28] MEDS: Simethicone 80 MG TAB.CHEW PO SCH ×4 (06:43→20:47)
[2021-12-28] MEDS: Apixaban 5 MG TABLET PO SCH ×2 (08:51→20:47)
[2021-12-28] MEDS: Gabapentin 300 MG CAPSULE PO SCH ×3 (08:51→20:48)
[2021-12-28] MEDS: Aspirin Enteric Coated 81 MG Tablet PO SCH (08:51)
[2021-12-28] MEDS: Multivit/Ca/Min/Fe/FA 1 TAB TABLET PO SCH (08:51)
[2021-12-28] MEDS: Cholecalciferol (D-3) 1,000 UNIT (25MCG) TABLET PO SCH (08:51)
[2021-12-28] MEDS: carvediloL 6.25 MG TABLET PO SCH ×2 (08:51→20:57)
[2021-12-28] MEDS: Folic Acid 1 MG TABLET PO SCH (08:51)
[2021-12-28] MEDS: Lactobacillus 1 EACH CAP.SPRINK PO SCH (08:51)
[2021-12-28] MEDS: DESVENLAFAXINE SUCCINATE PO SCH (08:52)
[2021-12-28] MEDS: Brexpiprazole [Rexulti] 1 MG Tablet PO SCH (08:52)
[2021-12-28] MEDS: Capecitabine [Xeloda] 500 MG Tablet PO SCH ×2 (08:52→20:49)
[2021-12-28] MEDS: Ondansetron ODT 4 MG TAB.RAPDIS SL PRN ×2 (09:23→18:27)
[2021-12-28] MEDS: *HR* OxyCODONE/APAP 5/325 TABLET PO PRN (09:23)
[2021-12-28] MEDS: traZODone 50 MG TABLET PO SCH (20:57)
[2021-12-29] MEDS: Cholecalciferol (D-3) 1,000 UNIT (25MCG) TABLET PO SCH (09:02)
[2021-12-29] MEDS: Gabapentin 300 MG CAPSULE PO SCH ×3 (09:02→20:49)
[2021-12-29] MEDS: Capecitabine [Xeloda] 500 MG Tablet PO SCH ×2 (09:03→20:52)
[2021-12-29] MEDS: Lactobacillus 1 EACH CAP.SPRINK PO SCH (09:05)
[2021-12-29] MEDS: Simethicone 80 MG TAB.CHEW PO SCH ×4 (09:05→20:53)
[2021-12-29] MEDS: Aspirin Enteric Coated 81 MG Tablet PO SCH (09:05)
[2021-12-29] MEDS: carvediloL 6.25 MG TABLET PO SCH ×2 (09:05→20:49)
[2021-12-29] MEDS: Multivit/Ca/Min/Fe/FA 1 TAB TABLET PO SCH (09:05)
[2021-12-29] MEDS: Apixaban 5 MG TABLET PO SCH ×2 (09:05→20:50)
[2021-12-29] MEDS: Folic Acid 1 MG TABLET PO SCH (09:05)
[2021-12-29] MEDS: DESVENLAFAXINE SUCCINATE PO SCH (09:06)
[2021-12-29] MEDS: Brexpiprazole [Rexulti] 1 MG Tablet PO SCH (09:06)
[2021-12-29] MEDS: *HR* OxyCODONE/APAP 5/325 TABLET PO PRN ×2 (10:38→16:56)
[2021-12-29] MEDS: Ondansetron ODT 4 MG TAB.RAPDIS SL PRN (11:47)
[2021-12-29] MEDS: traZODone 50 MG TABLET PO SCH (20:49)
[2021-12-30] MEDS: *HR* OxyCODONE/APAP 5/325 TABLET PO PRN ×3 (02:18→16:03)
[2021-12-30] MEDS: Simethicone 80 MG TAB.CHEW PO SCH ×4 (09:06→20:39)
[2021-12-30] MEDS: Folic Acid 1 MG TABLET PO SCH (09:07)
[2021-12-30] MEDS: Gabapentin 300 MG CAPSULE PO SCH ×3 (09:07→20:39)
[2021-12-30] MEDS: Lactobacillus 1 EACH CAP.SPRINK PO SCH (09:07)
[2021-12-30] MEDS: Cholecalciferol (D-3) 1,000 UNIT (25MCG) TABLET PO SCH (09:07)
[2021-12-30] MEDS: Aspirin Enteric Coated 81 MG Tablet PO SCH (09:08)
[2021-12-30] MEDS: carvediloL 6.25 MG TABLET PO SCH ×2 (09:08→20:41)
[2021-12-30] MEDS: Multivit/Ca/Min/Fe/FA 1 TAB TABLET PO SCH (09:08)
[2021-12-30] MEDS: Venlafaxine XR (24 HR) 75 MG CAP.ER.24H PO SCH (09:08)
[2021-12-30] MEDS: Apixaban 5 MG TABLET PO SCH ×2 (09:08→20:39)
[2021-12-30] MEDS: Capecitabine [Xeloda] 500 MG Tablet PO SCH ×2 (09:09→20:45)
[2021-12-30] MEDS: Brexpiprazole [Rexulti] 1 MG Tablet PO SCH (09:09)
[2021-12-30] MEDS: DESVENLAFAXINE SUCCINATE PO SCH (09:09)
[2021-12-30] MEDS ORDERED: Fluconazole 400 MG/200 ML 400 MG/200 ML BAG IVPB SCH (11:15)
[2021-12-30 11:57] LABS: Albumin 2.3 g/dL (3.5-5.7); Bilirubin,Direct 0.1 mg/dL (0.0-0.2); Bilirubin,Indirect 0.2 mg/dL (0.0-1.0); Bilirubin,Total 0.3 mg/dL (0.3-1.0); Globulin 2.4 g/dL (2.4-3.5); Total Protein 4.7 g/dL (6.4-8.9)
[2021-12-30] MEDS: traZODone 50 MG TABLET PO SCH (20:39)
[2021-12-30] MEDS: Ketoconazole 2% CRM 15 GM TUBE TP SCH (20:41)
[2021-12-31] MEDS: Cholecalciferol (D-3) 1,000 UNIT (25MCG) TABLET PO SCH (07:18)
[2021-12-31] MEDS: Multivit/Ca/Min/Fe/FA 1 TAB TABLET PO SCH (07:18)
[2021-12-31] MEDS: Aspirin Enteric Coated 81 MG Tablet PO SCH (07:18)
[2021-12-31] MEDS: Venlafaxine XR (24 HR) 75 MG CAP.ER.24H PO SCH (07:18)
[2021-12-31] MEDS: Folic Acid 1 MG TABLET PO SCH (07:18)
[2021-12-31] MEDS: Apixaban 5 MG TABLET PO SCH ×2 (07:18→21:26)
[2021-12-31 07:19] LABS: Alanine Aminotransferase 16 Units/L (7-52); Albumin 2.3 g/dL (3.5-5.7); Alkaline Phosphatase 78 Units/L (34-104); Aspartate Amino Transferase 25 Units/L (13-39); BUN/Creatinine Ratio 9 (6-26); Bilirubin,Total 0.3 mg/dL (0.3-1.0); Blood Urea Nitrogen 8 mg/dL (8-23); Calcium 8.6 mg/dL (8.6-10.3); Carbon Dioxide 31 mEq/L (23-29); Chloride 105 mEq/L (98-107); Globulin 2.3 g/dL (2.4-3.5); Glucose 91 mg/dL (70-105); Osmolality,Calculated 290 (280-300); Potassium 4.4 mEq/L (3.5-5.1); Sodium 141 mEq/L (136-145); Total Protein 4.6 g/dL (6.4-8.9); eGFR For African Americans > 60 (> 60); eGFR For Non-African Americans > 60 (> 60)
[2021-12-31] MEDS: Gabapentin 300 MG CAPSULE PO SCH ×3 (07:19→21:26)
[2021-12-31] MEDS: Simethicone 80 MG TAB.CHEW PO SCH ×4 (07:19→21:26)
[2021-12-31] MEDS: Lactobacillus 1 EACH CAP.SPRINK PO SCH (07:19)
[2021-12-31] MEDS: Brexpiprazole [Rexulti] 1 MG Tablet PO SCH (07:20)
[2021-12-31] MEDS: Capecitabine [Xeloda] 500 MG Tablet PO SCH ×2 (07:21→21:30)
[2021-12-31] MEDS: carvediloL 6.25 MG TABLET PO SCH ×2 (07:35→21:26)
[2021-12-31] MEDS: *HR* OxyCODONE/APAP 5/325 TABLET PO PRN ×3 (07:36→21:25)
[2021-12-31] MEDS: Ondansetron ODT 4 MG TAB.RAPDIS SL PRN ×3 (07:36→21:33)
[2021-12-31] MEDS: Ketoconazole 2% CRM 15 GM TUBE TP SCH ×2 (07:37→21:29)
[2021-12-31] MEDS: traZODone 50 MG TABLET PO SCH (21:25)
[2022-01-01] MEDS: Simethicone 80 MG TAB.CHEW PO SCH ×4 (05:54→20:26)
[2022-01-01] MEDS: Ondansetron ODT 4 MG TAB.RAPDIS SL PRN ×2 (05:54→18:27)
[2022-01-01 08:06] LABS: Alanine Aminotransferase 15 Units/L (7-52); Albumin 2.3 g/dL (3.5-5.7); Alkaline Phosphatase 84 Units/L (34-104); Aspartate Amino Transferase 20 Units/L (13-39); BUN/Creatinine Ratio 9 (6-26); Bilirubin,Total 0.3 mg/dL (0.3-1.0); Blood Urea Nitrogen 9 mg/dL (8-23); Calcium 8.3 mg/dL (8.6-10.3); Carbon Dioxide 31 mEq/L (23-29); Chloride 105 mEq/L (98-107); Globulin 2.3 g/dL (2.4-3.5); Glucose 88 mg/dL (70-105); Osmolality,Calculated 288 (280-300); Sodium 140 mEq/L (136-145); Total Protein 4.6 g/dL (6.4-8.9); eGFR For African Americans > 60 (> 60); eGFR For Non-African Americans 57 (> 60)
[2022-01-01] MEDS: Brexpiprazole [Rexulti] 1 MG Tablet PO SCH (08:33)
[2022-01-01] MEDS: carvediloL 6.25 MG TABLET PO SCH ×2 (08:33→20:25)
[2022-01-01] MEDS: Multivit/Ca/Min/Fe/FA 1 TAB TABLET PO SCH (08:34)
[2022-01-01] MEDS: Lactobacillus 1 EACH CAP.SPRINK PO SCH (08:34)
[2022-01-01] MEDS: Aspirin Enteric Coated 81 MG Tablet PO SCH (08:34)
[2022-01-01] MEDS: Cholecalciferol (D-3) 1,000 UNIT (25MCG) TABLET PO SCH (08:34)
[2022-01-01] MEDS: Apixaban 5 MG TABLET PO SCH ×2 (08:34→20:26)
[2022-01-01] MEDS: Gabapentin 300 MG CAPSULE PO SCH ×3 (08:34→20:24)
[2022-01-01] MEDS: Folic Acid 1 MG TABLET PO SCH (08:34)
[2022-01-01] MEDS: Venlafaxine XR (24 HR) 75 MG CAP.ER.24H PO SCH (08:34)
[2022-01-01] MEDS: Ketoconazole 2% CRM 15 GM TUBE TP SCH ×2 (08:38→20:27)
[2022-01-01] MEDS: *HR* OxyCODONE/APAP 5/325 TABLET PO PRN ×3 (08:40→22:19)
[2022-01-01] MEDS: *HR* Methotrexate 2.5 MG TABLET PO SCH (12:16)
[2022-01-01] MEDS: traZODone 50 MG TABLET PO SCH (20:25)
[2022-01-02] MEDS: Simethicone 80 MG TAB.CHEW PO SCH ×4 (06:42→20:47)
[2022-01-02] MEDS: *HR* OxyCODONE/APAP 5/325 TABLET PO PRN ×3 (06:43→20:46)
[2022-01-02] MEDS: Folic Acid 1 MG TABLET PO SCH (09:34)
[2022-01-02] MEDS: Venlafaxine XR (24 HR) 75 MG CAP.ER.24H PO SCH (09:34)
[2022-01-02] MEDS: Cholecalciferol (D-3) 1,000 UNIT (25MCG) TABLET PO SCH (09:34)
[2022-01-02] MEDS: Aspirin Enteric Coated 81 MG Tablet PO SCH (09:35)
[2022-01-02] MEDS: Multivit/Ca/Min/Fe/FA 1 TAB TABLET PO SCH (09:35)
[2022-01-02] MEDS: Lactobacillus 1 EACH CAP.SPRINK PO SCH (09:35)
[2022-01-02] MEDS: Apixaban 5 MG TABLET PO SCH ×2 (09:35→20:46)
[2022-01-02] MEDS: Ketoconazole 2% CRM 15 GM TUBE TP SCH ×2 (09:35→20:49)
[2022-01-02] MEDS: carvediloL 6.25 MG TABLET PO SCH ×2 (09:35→20:46)
[2022-01-02] MEDS: Gabapentin 300 MG CAPSULE PO SCH ×3 (09:35→20:44)
[2022-01-02] MEDS: Brexpiprazole [Rexulti] 1 MG Tablet PO SCH (09:36)
[2022-01-02] MEDS ORDERED: Fluconazole 150 MG TABLET PO ONE (14:36)
[2022-01-02] MEDS: traZODone 50 MG TABLET PO SCH (20:45)
[2022-01-03] MEDS: Simethicone 80 MG TAB.CHEW PO SCH ×4 (05:36→21:21)
[2022-01-03] MEDS: *HR* OxyCODONE/APAP 5/325 TABLET PO PRN ×3 (07:48→21:18)
[2022-01-03] MEDS: Aspirin Enteric Coated 81 MG Tablet PO SCH (08:37)
[2022-01-03] MEDS: Lactobacillus 1 EACH CAP.SPRINK PO SCH (08:37)
[2022-01-03] MEDS: Venlafaxine XR (24 HR) 75 MG CAP.ER.24H PO SCH (08:37)
[2022-01-03] MEDS: Folic Acid 1 MG TABLET PO SCH (08:37)
[2022-01-03] MEDS: carvediloL 6.25 MG TABLET PO SCH ×2 (08:37→21:16)
[2022-01-03] MEDS: Apixaban 5 MG TABLET PO SCH ×2 (08:37→21:16)
[2022-01-03] MEDS: Gabapentin 300 MG CAPSULE PO SCH ×3 (08:37→21:17)
[2022-01-03] MEDS: Multivit/Ca/Min/Fe/FA 1 TAB TABLET PO SCH (08:37)
[2022-01-03] MEDS: Cholecalciferol (D-3) 1,000 UNIT (25MCG) TABLET PO SCH (08:37)
[2022-01-03] MEDS: Capecitabine [Xeloda] 500 MG Tablet PO SCH ×2 (08:39→21:20)
[2022-01-03] MEDS: Brexpiprazole [Rexulti] 1 MG Tablet PO SCH (08:40)
[2022-01-03] MEDS: Ketoconazole 2% CRM 15 GM TUBE TP SCH ×2 (08:42→21:22)
[2022-01-03] MEDS ORDERED: Cefepime HCl 2,000 MG in 0.9 % Sodium Chloride 10 ML IVP SCH (16:00)
[2022-01-03] MEDS: Cefepime HCl 2,000 MG in 0.9 % Sodium Chloride 10 ML IVP SCH (17:05)
[2022-01-03] MEDS: traZODone 50 MG TABLET PO SCH (21:17)
[2022-01-04 04:45] LABS: Basophils % 0.8 %; Eosinophils # 0.4 K/mcL (0.0-0.6); Eosinophils % 10.7 %; Hematocrit 29.9 % (35.3-44.9); Hemoglobin 9.5 g/dL (11.5-15.4); Immature Granulocytes % 0.3 % (0-4); Lymphocytes # 0.3 K/mcL (0.6-4.6); Lymphocytes % 7.4 %; Mean Corpuscular HGB Conc 31.8 g/dL (31.6-35.5); Mean Corpuscular Hemoglobin 28.9 pg (28.0-33.3); Mean Corpuscular Volume 90.9 fL (83.0-100.0); Mean Platelet Volume 8.8 fL (9.4-12.4); Monocytes # 0.2 K/mcL (0.0-1.3); Monocytes % 4.1 %; Platelet Count 260 K/mcL (140-400); Red Blood Count 3.29 M/mcL (3.82-4.97); Segmented Neutrophils % 76.7 %; White Blood Count 3.9 K/mcL (4.3-11.1)
[2022-01-04 05:01] LABS: Alanine Aminotransferase 12 Units/L (7-52); Albumin 2.2 g/dL (3.5-5.7); Albumin/Globulin Ratio 0.9 (1.1-2.2); Alkaline Phosphatase 78 Units/L (34-104); Aspartate Amino Transferase 19 Units/L (13-39); BUN/Creatinine Ratio 10 (6-26); Bilirubin,Total 0.3 mg/dL (0.3-1.0); Blood Urea Nitrogen 10 mg/dL (8-23); Calcium 8.7 mg/dL (8.6-10.3); Carbon Dioxide 29 mEq/L (23-29); Chloride 108 mEq/L (98-107); Globulin 2.5 g/dL (2.4-3.5); Glucose 93 mg/dL (70-105); Magnesium 1.9 mg/dL (1.6-2.6); Osmolality,Calculated 291 (280-300); Potassium 4.8 mEq/L (3.5-5.1); Sodium 141 mEq/L (136-145); Total Protein 4.7 g/dL (6.4-8.9); eGFR For African Americans > 60 (> 60); eGFR For Non-African Americans 58 (> 60)
[2022-01-04] MEDS: Cefepime HCl 2,000 MG in 0.9 % Sodium Chloride 10 ML IVP SCH ×2 (05:15→17:11)
[2022-01-04] MEDS: Simethicone 80 MG TAB.CHEW PO SCH ×4 (05:17→21:59)
[2022-01-04] MEDS: *HR* OxyCODONE/APAP 5/325 TABLET PO PRN ×3 (05:20→21:58)
[2022-01-04] MEDS: Lactobacillus 1 EACH CAP.SPRINK PO SCH (09:27)
[2022-01-04] MEDS: Apixaban 5 MG TABLET PO SCH ×2 (09:27→21:57)
[2022-01-04] MEDS: Venlafaxine XR (24 HR) 75 MG CAP.ER.24H PO SCH (09:28)
[2022-01-04] MEDS: carvediloL 6.25 MG TABLET PO SCH ×2 (09:28→21:58)
[2022-01-04] MEDS: Gabapentin 300 MG CAPSULE PO SCH ×3 (09:28→21:58)
[2022-01-04] MEDS: Multivit/Ca/Min/Fe/FA 1 TAB TABLET PO SCH (09:29)
[2022-01-04] MEDS: Brexpiprazole [Rexulti] 1 MG Tablet PO SCH (09:29)
[2022-01-04] MEDS: Ketoconazole 2% CRM 15 GM TUBE TP SCH ×2 (09:29→22:00)
[2022-01-04] MEDS: Cholecalciferol (D-3) 1,000 UNIT (25MCG) TABLET PO SCH (09:29)
[2022-01-04] MEDS: Folic Acid 1 MG TABLET PO SCH (09:29)
[2022-01-04] MEDS: Aspirin Enteric Coated 81 MG Tablet PO SCH (09:29)
[2022-01-04] MEDS: Ondansetron ODT 4 MG TAB.RAPDIS SL PRN (09:29)
[2022-01-04] MEDS: Capecitabine [Xeloda] 500 MG Tablet PO SCH ×2 (09:30→23:54)
[2022-01-04] MEDS: *HR* OxyCODONE/APAP 7.5/325 TABLET PO PRN (12:43)
[2022-01-04] MEDS: traZODone 50 MG TABLET PO SCH (21:56)
[2022-01-05] MEDS: *HR* OxyCODONE/APAP 5/325 TABLET PO PRN ×5 (03:42→21:44)
[2022-01-05] MEDS: Cefepime HCl 2,000 MG in 0.9 % Sodium Chloride 10 ML IVP SCH ×2 (05:31→16:54)
[2022-01-05] MEDS: Simethicone 80 MG TAB.CHEW PO SCH ×4 (05:32→21:44)
[2022-01-05] MEDS: Cholecalciferol (D-3) 1,000 UNIT (25MCG) TABLET PO SCH (09:01)
[2022-01-05] MEDS: Lactobacillus 1 EACH CAP.SPRINK PO SCH (09:01)
[2022-01-05] MEDS: Venlafaxine XR (24 HR) 75 MG CAP.ER.24H PO SCH (09:02)
[2022-01-05] MEDS: Aspirin Enteric Coated 81 MG Tablet PO SCH (09:02)
[2022-01-05] MEDS: Apixaban 5 MG TABLET PO SCH ×2 (09:02→21:44)
[2022-01-05] MEDS: Gabapentin 300 MG CAPSULE PO SCH ×3 (09:03→21:42)
[2022-01-05] MEDS: Folic Acid 1 MG TABLET PO SCH (09:03)
[2022-01-05] MEDS: Multivit/Ca/Min/Fe/FA 1 TAB TABLET PO SCH (09:03)
[2022-01-05] MEDS: Brexpiprazole [Rexulti] 1 MG Tablet PO SCH (09:04)
[2022-01-05] MEDS: Fluconazole 100 MG TABLET PO SCH (09:04)
[2022-01-05] MEDS: Ketoconazole 2% CRM 15 GM TUBE TP SCH ×2 (09:04→21:50)
[2022-01-05] MEDS: carvediloL 6.25 MG TABLET PO SCH ×2 (09:04→21:42)
[2022-01-05] MEDS: Capecitabine [Xeloda] 500 MG Tablet PO SCH ×2 (09:05→21:48)
[2022-01-05] MEDS: traZODone 50 MG TABLET PO SCH (21:41)
[2022-01-06] MEDS: *HR* OxyCODONE/APAP 7.5/325 TABLET PO PRN ×3 (02:47→14:47)
[2022-01-06] MEDS: Simethicone 80 MG TAB.CHEW PO SCH ×2 (05:59→12:10)
[2022-01-06] MEDS: Ibuprofen 600 MG TABLET PO PRN ×2 (06:01→12:21)
[2022-01-06] MEDS: Cefepime HCl 2,000 MG in 0.9 % Sodium Chloride 10 ML IVP SCH (06:02)
[2022-01-06 07:21] VITALS: RESP 16; TEMP 97.7; O2SAT 96
[2022-01-06] MEDS ORDERED: carvediloL 6.25 MG TABLET PO SCH (08:00)
[2022-01-06] MEDS: Gabapentin 300 MG CAPSULE PO SCH ×2 (09:03→14:47)
[2022-01-06 09:18] VITALS: PULSE 68
[2022-01-06] MEDS: Folic Acid 1 MG TABLET PO SCH (09:18)
[2022-01-06] MEDS: Apixaban 5 MG TABLET PO SCH (09:18)
[2022-01-06] MEDS: Venlafaxine XR (24 HR) 75 MG CAP.ER.24H PO SCH (09:18)
[2022-01-06] MEDS: Multivit/Ca/Min/Fe/FA 1 TAB TABLET PO SCH (09:18)
[2022-01-06] MEDS: Aspirin Enteric Coated 81 MG Tablet PO SCH (09:18)
[2022-01-06] MEDS: Cholecalciferol (D-3) 1,000 UNIT (25MCG) TABLET PO SCH (09:18)
[2022-01-06] MEDS: Fluconazole 100 MG TABLET PO SCH (09:18)
[2022-01-06] MEDS: Lactobacillus 1 EACH CAP.SPRINK PO SCH (09:18)
[2022-01-06] MEDS: Capecitabine [Xeloda] 500 MG Tablet PO SCH (09:19)
[2022-01-06] MEDS: Brexpiprazole [Rexulti] 1 MG Tablet PO SCH (09:19)
[2022-01-06] MEDS: Ketoconazole 2% CRM 15 GM TUBE TP SCH (09:35)
[2022-01-06] MEDS: Ondansetron ODT 4 MG TAB.RAPDIS SL PRN (10:07)
[2022-01-06 12:17] VITALS: BP 109/64
== END 2022-01-06 15:43 | disposition home or self-care (01) | DRG 375 ==
LOC: INPGRE 12-24 13:05
PROVIDERS: ADMIT Family Medicine; ATTEND Family Medicine